=== PATIENT | female | born 1990 | race Asian ===

== ENCOUNTER 2016-09-20 18:24 | Emergency (ER) | payer BC ==
[~2016-09-20] VITALS: Ht 165.1 cm; Wt 86.2 kg
[2016-09-20 20:35] LABS: PLATELET COUNT 359 K/uL (152-353)
[2016-09-20 20:52] LABS: POTASSIUM 3.8 mmol/L (3.6-5.2)
[2016-09-20 21:20] VITALS: BP 123/88; TEMP 98.8
== END 2016-09-20 21:20 | disposition home or self-care (01) ==
LOC: ED 18:24
DX: K52.9 Noninfective gastroenteritis and colitis, unspecified (principal)
CPT/HCPCS: 36415; 80053; 85027; 96360; 99284

== ENCOUNTER 2018-03-17 22:40 | Emergency (ER) | payer OTHER ==
[~2018-03-17] VITALS: Ht 165.1 cm; Wt 89.8 kg
[2018-03-17 23:48] LABS: PLATELET COUNT 352 K/uL (152-353)
[2018-03-18 00:18] LABS: POTASSIUM 4.2 mmol/L (3.6-5.2)
[2018-03-18 01:59] VITALS: BP 119/67; TEMP 98.7
== END 2018-03-18 02:03 | disposition home or self-care (01) ==
LOC: ED 22:40
PROVIDERS: Internal Medicine
DX: R10.13 Epigastric pain (principal); R10.9 Unspecified abdominal pain
CPT/HCPCS: 36415; 74022; 80053; 82150; 83690; 85027; 99283

== ENCOUNTER 2020-01-20 01:46 | Emergency (ER) | payer OTHER ==
[~2020-01-20] VITALS: Ht 165.1 cm; Wt 99.8 kg
[2020-01-20 02:41] VITALS: BP 123/86; TEMP 99.2
== END 2020-01-20 02:41 | disposition home or self-care (01) ==
LOC: ED 01:46
DX: J02.8 Acute pharyngitis due to other specified organisms (principal)
CPT/HCPCS: 87651; 99282

== ENCOUNTER 2022-05-30 10:23 | Emergency (ER) | payer BC ==
[~2022-05-30] VITALS: Ht 165.1 cm; Wt 99.8 kg
[2022-05-30 10:35] VITALS: BP 136/83; TEMP 97.6
[2022-05-30 11:25] LABS: PLATELET COUNT 328 K/uL (152-353)
[2022-05-30 11:30] LABS: POTASSIUM 3.8 mmol/L (3.6-5.2)
[2022-05-30 11:40] LABS: PARTIAL THROMBOPLASTIN TIME 24.9 SECONDS (24.5-33.6)
== END 2022-05-30 14:05 | disposition home or self-care (01) ==
LOC: ED 10:23
PROVIDERS: Emergency Medicine
DX: J20.9 Acute bronchitis, unspecified (principal); U07.1 COVID-19
CPT/HCPCS: 36415; 36600; 80053; 82805; 83880; 84484; 85027; 85379; 85610; 85730; 93005; 99283